=== PATIENT | female | born 1995 | race Caucasian/White ===

== ENCOUNTER 2016-09-15 21:54 | Emergency (ER) | payer SELFPAY ==
[2016-09-15] MEDS: KETOROLAC TROMETHAMINE 60 MG/2 ML VIAL IM ONE (23:20)
[2016-09-16 00:05] VITALS: BP 119/67
--- NOTE | 2016-09-16 00:15 | ED Physician Documentation ---
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 Pain occurs with movement and, she says, also occurs in upper chest when she moves. Pt says she is concerned about this pain occurring in her chest because her mother had breast cancer. 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.) - ROS CONST: no problems EYES/ENT: none CVS/RESP: none GI/: none MS/SKIN/LYMPH: other (neck pain) - PAST HX Past History: other (seizure) Surgeries/Procedures: cholecystectomy Allergies/Adverse Reactions: Allergies Allergy/AdvReac Type Severity Reaction Status Date / Time No Known Allergies Allergy Verified 09/15/16 22:28 Home Medications: Ambulatory Orders Medication Instructions Recorded Carbamazepine [Tegretol] 200 mg PO BID 09/15/16 Cholecalciferol (Vitamin D3) 10,000 unit PO WEEKLY AT 0600 09/15/16 [Vitamin D-3] - SOCIAL HX Smoking History: non-smoker - FAMILY HX Family History: Yes (Mother: breast cancer) - VITAL SIGNS Vital Signs: Vital Signs Temp Pulse Resp BP Pulse Ox 93 H 16 116/80 99 09/15/16 22:00 09/15/16 22:00 09/15/16 22:00 09/15/16 22:00 - REVIEWED ASSESSMENTS Nursing Assessment Reviewed: Yes Vitals Reviewed: Yes Progress - Progress Progress: Toradol 60 mg IM Sx resolved. ED Results Lab/Radiology - Orders Orders: ED Orders Category Date Time Status Ketorolac Tromethamine [Toradol] Med 09/15/16 23:17 Discontinued 60 mg IM NOW ONE General Adult Physical Exam - PHYSICAL EXAM GENERAL APPEARANCE: mild distress EENT: pharynx normal NECK: normal inspection, supple RESPIRATORY: no resp distress, chest non-tender, breath sounds normal CVS: reg rate & rhythm, heart sounds normal BACK: normal inspection, no CVA tenderness SKIN: warm/dry, normal color EXTREMITIES: non-tender, normal range of motion, no evidence of injury NEURO: oriented X3, motor nml, sensation nml Discharge Clincal Impression: neck pain, resolved Referrals: Primary Doctor,No [Primary Care Provider] - Home Medications: Ambulatory Orders Carbamazepine [Tegretol] 200 mg PO BID 09/15/16 Cholecalciferol (Vitamin D3) [Vitamin D-3] 10,000 unit PO WEEKLY AT 0600 Condition: Good Disposition: 01 HOME, SELF-CARE Decision to Admit: NO Decision Time: 23:55
== END 2016-09-15 23:55 | disposition home or self-care (01) ==
LOC: ED 21:54
DX: M54.2 Cervicalgia (principal)
CPT/HCPCS: 81025; J1885; 96372; 99283

== ENCOUNTER 2016-11-08 14:21 | Emergency (ER) | payer OTHER ==
--- NOTE | 2016-11-08 14:23 | ED Physician Documentation ---
General Adult - HISTORIAN Historian: patient - HPI Stated Complaint: R ankle pain Chief Complaint: General Adult Onset: minutes Timing: still present Severity: moderate Further Comments: yes (Pt is a 21 yo female with R ankle pain. Pt slipped on water in her basement.) - ROS CONST: no problems EYES/ENT: none CVS/RESP: none GI/: none MS/SKIN/LYMPH: other (R ankle/foot pain) - PAST HX Past History: none Allergies/Adverse Reactions: Allergies Allergy/AdvReac Type Severity Reaction Status Date / Time No Known Allergies Allergy Verified 11/08/16 14:54 Home Medications: Ambulatory Orders Medication Instructions Recorded Carbamazepine [Tegretol] 200 mg PO BID 09/15/16 Cholecalciferol (Vitamin D3) 10,000 unit PO WEEKLY AT 0600 09/15/16 [Vitamin D-3] - SOCIAL HX Smoking History: non-smoker - FAMILY HX Family History: No - VITAL SIGNS Vital Signs: Vital Signs Temp Pulse Resp BP Pulse Ox 119/67 09/15/16 23:55 - REVIEWED ASSESSMENTS Nursing Assessment Reviewed: Yes Vitals Reviewed: Yes Progress - Progress Progress: x-ray R ankle: 3 views of the ankle demonstrates normal cortical margins. PA view demonstrates a faint lucency involving the distal fibula, not visualized on other images. No other fracture or dislocation. Talar dome is intact. No soft tissue swelling. No joint effusion. x-ray R foot: no fracture. Possible hairline R fibula fracture. Splint. Rx [place] (5/325). Take one or two every 4 to 6 hrs as needed for moderate to severe pain. Crutches as needed. Follow up with orthopedic doctor either at [facility] Tel. [phone] ( ask for orthopedic clinic) or at [facility] Tel. [phone]. General Adult Physical Exam - PHYSICAL EXAM GENERAL APPEARANCE: mild distress NECK: normal inspection, supple RESPIRATORY: no resp distress, chest non-tender, breath sounds normal CVS: reg rate & rhythm, heart sounds normal BACK: normal inspection, no CVA tenderness SKIN: warm/dry, normal color EXTREMITIES: other (R ankle tenderness, lateral malleolus) NEURO: oriented X3, motor nml, sensation nml Discharge Clincal Impression: possible R fibula hairline fracture Referrals: Primary Doctor,No [Primary Care Provider] - Home Medications: Ambulatory Orders Carbamazepine [Tegretol] 200 mg PO BID 09/15/16 Cholecalciferol (Vitamin D3) [Vitamin D-3] 10,000 unit PO WEEKLY AT 0600 Condition: Stable Disposition: 01 HOME, SELF-CARE Decision to Admit: NO Decision Time: 15:40
--- NOTE | 2016-11-08 15:11 | Diagnostic Imaging Report ---
MAYRA ESCOBEDO [facility] [address] Replaced By [facility] [address] [address] Report Submission Date: Nov 08, 2016 3:08:12 PM CDT Patient Study Name: SOLITARIO OTERO Date: Nov 08, 2016 2:40:02 PM CDT Modality Type: CR Gender: F Description: LOWER EXTREMITY : 93 Institution: [facility] Physician: MAYRA ESCOBEDO Examination: Plain film foot History: Injury Findings: 3 views of the foot demonstrates normal cortical margins. No fracture or dislocation. Normal epiphysis. No soft tissue swelling. No joint effusion. Impression: No fracture. Electronically signed on Nov 08, 2016 3:08:12 PM CDT by: Freddie MATOS
--- NOTE | 2016-11-08 15:25 | Diagnostic Imaging Report ---
MAYRA ESCOBEDO [facility] [address] [facility] [address] [place] [address]. [id number] Report Submission Date: Nov 08, 2016 3:10:32 PM CDT Patient Study Name: SOLITARIO OTERO Date: Nov 08, 2016 2:45:44 PM CDT Modality Type: CR Gender: F Description: LOWER EXTREMITY : 93 Institution: [facility] Physician: MAYRA ESCOBEDO Examination: Plain film ankle History: Injury Findings: 3 views of the ankle demonstrates normal cortical margins. PA view demonstrates a faint lucency involving the distal fibula, not visualized on other images. No other fracture or dislocation. Talar dome is intact. No soft tissue swelling. No joint effusion. Impression: Possible nondisplaced distal fibular hairline fracture. Correlate with point of injury/discomfort. Electronically signed on Nov 08, 2016 3:10:32 PM CDT by: Freddie MATOS
[2016-11-08 16:37] VITALS: BP 104/72
== END 2016-11-08 16:00 | disposition home or self-care (01) ==
LOC: ED 14:21
DX: M25.571 Pain in right ankle and joints of right foot (principal)
CPT/HCPCS: 73610; 73630; 99283